=== PATIENT | male | born 1970 | race Caucasian/White ===

== ENCOUNTER 2018-07-14 12:52 | Inpatient (IN) | payer OTHER ==
[2018-07-14 13:36] VITALS: BMI 19.5
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
[2018-07-14] MEDS ORDERED: MAG HYDROX/AL HYDROX/SIMETH 30 ML UNIT-DOSE CUP PO PRN (15:37)
[2018-07-14] MEDS ORDERED: MAGNESIUM HYDROX 2400MG/30ML ORAL SUSPENSION 30 ML CUP PO PRN (15:37)
[2018-07-14] MEDS ORDERED: MENTHOL/PHENOL 1 EACH UD MM PRN (15:37)
[2018-07-14] MEDS ORDERED: METHOCARBAMOL 500 MG TABLET PO PRN (15:37)
[2018-07-14] MEDS ORDERED: BISMUTH SUBSALICYLATE 524 MG/30 ML UD PO PRN (15:37)
[2018-07-14] MEDS ORDERED: cloNIDine HCL 0.1 MG TABLET PO PRN (15:37)
[2018-07-14] MEDS ORDERED: ACETAMINOPHEN 325 MG TABLET (FP) PO PRN ×2 (15:37)
[2018-07-14] MEDS ORDERED: MELATONIN 5 MG TABLETS PO PRN (15:37)
[2018-07-14] MEDS ORDERED: diazePAM 5 MG TABLET PO PRN (15:37)
[2018-07-14] MEDS ORDERED: MAGNESIUM CITRATE 300 ML BOTTLE PO PRN (15:37)
[2018-07-14] MEDS ORDERED: IBUPROFEN 400 MG TABLET (FP) PO PRN (15:37)
[2018-07-14] MEDS ORDERED: BACITRACIN 15 GM TUBE TOPICAL OINTMENT TP ONE (17:30)
[2018-07-14] MEDS: NICOTINE POLACRILEX 4 MG GUM BUC PRN (18:29)
[2018-07-14] MEDS ORDERED: THIAMINE HCL 100 MG TABLET (FP) PO SCH (22:00)
[2018-07-14] MEDS: diazePAM 5 MG TABLET PO SCH (22:03)
[2018-07-14] MEDS ORDERED: METHADONE HCL 10 MG TABLET (FOR DETOX USE ONLY) PO ONE (23:00)
[2018-07-14 23:17] LABS: URINE APPEARANCE CLEAR; URINE BILIRUBIN NEGATIVE (NEGATIVE); URINE COLOR DK YELLOW; URINE GLUCOSE (UA) NEGATIVE (NEGATIVE); URINE KETONE NEGATIVE (NEGATIVE); URINE LEUK ESTERASE NEGATIVE (NEGATIVE); URINE NITRITE NEGATIVE (NEGATIVE); URINE PROTEIN NEGATIVE (NEGATIVE)
[2018-07-15] MEDS: diazePAM 5 MG TABLET PO SCH (07:03)
[2018-07-15] MEDS: NICOTINE POLACRILEX 4 MG GUM BUC PRN (07:50)
--- NOTE | 2018-07-15 08:39 | CONSULT ---
[facility] Psychiatric Consult - Data Date of interview: 07/15/18 Admission source: [facility] Identifying data: Mr Gonzalez is a 48 years old male, father of 2 children, unemployed receiving public assistance, domiciled seeking detox treatment for alcohol, opioid, benzodiazepin, cannabis and ecstasy Medical History: Significant for arthritis in both hands and knees, herniated disks (lumbar spine) and history of bilateral knee surgery. Smokes cigarettes 2 ppd Psychiatric History: Reports that his first psychiatric contact was at age 11 when he was diagnosed with ADHD and started on Ritalin. Reports that he took medication(Ritalin) till age 16. Reports that from age 16 to 26 he was off medication. At age 26 he was rediagnosed with ADHD and Bipolar Disorder and was started on Adderall, Risperdal. Reports multiple psychiatric hospitalizations at various local facilities including [facility], [facility], [facility](formerly [facility]and most recentlyin 2008 at [facility]. Reports receiving outpatient psychiatric treatment at [facility] in the [place] and he is currently prescribed Risperdal 2mg/day, Adderall 20 mg/bid, Xanax 2mg/day and Venlafaxine XR 225 mg/day. This is confirmed by verification of external medication history from [facility](filled scripts for 30 day supply of these medications on 07/09/18). Denies history of suicide attempts. At present, denies experiencing psychotic, manic or depressive symptoms. However, reports feeling anxious and sleeping poorly Physical/Sexual Abuse/Trauma History: Denies history of emotional, physical or sexual abuse as well as DV relationship. No service Additional Comment: Reports history of multiple previous misdemeanor arrests. Denies being on parole/probation. Reports having an open case on charges of DUI without a license Mental Status Exam - Mental Status Exam Alert and Oriented to: Time, Place, Person Cognitive Function: Fair Patient Appearance: Disheveled Mood: Anxious Affect: Appropriate Speech Pattern: Clear Voice Loudness: Normal Thought Process: Intact, Goal Oriented Hallucinations: Denies Suicidal Ideation: Denies Homicidal Ideation: Denies Insight/Judgement: Poor Sleep: Poorly Appetite: Fair Muscle strength/Tone: Normal Gait/Station: Normal Psychiatric Findings - Problem List ([place] 1, 2,3) (1) Bipolar disorder Current Visit: No Status: Chronic (2) Substance-induced anxiety disorder Current Visit: Yes Status: Acute (3) Substance-induced sleep disorder Current Visit: Yes Status: Acute (4) Alcohol dependence with uncomplicated withdrawal Current Visit: Yes Status: Acute (5) Opioid dependence with withdrawal Current Visit: Yes Status: Acute (6) Sedative, hypnotic or anxiolytic dependence with withdrawal, uncomplicated Current Visit: Yes Status: Acute (7) Cannabis dependence Current Visit: Yes Status: Acute (8) MDMA abuse Current Visit: Yes Status: Acute (9) Nicotine dependence Current Visit: Yes Status: Chronic (10) Arthritis Current Visit: Yes Status: Chronic - Initial Treatment Plan Initial Treatment Plan: 1) Continue Venlafaxine XR 225 mg po daily, Buspar 15 mg po BID, Risperdal 2 mg po daily. 2) Start Ritalin 5 mg po BID. 3) Continue inpatient detoxification
--- NOTE | 2018-07-15 09:38 | PN ---
S CIWA - CIWA Score Nausea/Vomitin Muscle Tremors: 2 Anxiety: 2 Agitation: 2 Paroxysmal Sweats: 1-Minimal Palms Moist Orientation: 0-Oriented Tacttile Disturbances: 1-Very Mild Itch/Numbness Auditory Disturbances: 1-Very Mild Visual Disturbances: 0-None Headache: 2-Mild CIWA-Ar Total Score: 13 BHS COWS - Scale Resting Pulse: 0= [place] 80 or Below Sweatin= Chills/Flushing Restless Observation: 1= Difficult to Sit Still Pupil Size: 1= Pupils >than Normal Bone or Joint Aches: 2= Severe Diffuse Aches Runny Nose/ Eye Tearin= Runny Nose/Eyes GI Upset > 30mins: 2= Nausea/Diarrhea Tremor Observation of Outstretched Hands: 2= Slight Tremor Visible Yawning Observation: 1= 1-2x During Session Anxiety or Irritability: 2=Irritable/Anxious Goose Flesh Skin: 0=Smooth Skin COWS Score: 14 S Progress Note (SOAP) Subjective: alert,irritable,anxious,pain in the body and back,tremor,interrupted sleep Objective: 07/15/18 09:36 Vital Signs Temperature 97.3 F L 07/14/18 21:28 Pulse Rate 131 H 07/14/18 21:28 Respiratory Rate 16 07/15/18 06:15 Blood Pressure 103/57 L 07/14/18 21:28 O2 Sat by Pulse Oximetry (%) ekg sinus bradycardia 54/min qt/qtc 418/396 no chest pain,no sob,no dizziness Laboratory Last Values Urine Color Dk yellow 07/14/18 18:15 Urine Appearance Clear 07/14/18 18:15 Urine pH 5.0 (5.0-8.0) 07/14/18 18:15 Ur Specific [place] 1.025 (1.010-1.035) 07/14/18 18:15 Urine Protein Negative (NEGATIVE) 07/14/18 18:15 Urine Glucose (UA) Negative (NEGATIVE) 07/14/18 18:15 Urine Ketones Negative (NEGATIVE) 07/14/18 18:15 Urine Blood Negative (NEGATIVE) 07/14/18 18:15 Urine Nitrite Negative (NEGATIVE) 07/14/18 18:15 Urine Bilirubin Negative (NEGATIVE) 07/14/18 18:15 Urine Urobilinogen 1.0 mg/dL (0.2-1.0) 07/14/18 18:15 Ur Leukocyte Esterase Negative (NEGATIVE) 07/14/18 18:15 labs pending Assessment: 07/15/18 09:37 withdrawal symptom Plan: continue detox
[2018-07-15] MEDS ORDERED: PRENATAL VITAMINS W/ FOLIC ACID TABLET (FP) PO SCH (10:00)
[2018-07-15] MEDS ORDERED: VENLAFAXINE HCL 75 MG E.R. CAPSULES (FP) PO SCH (10:00)
[2018-07-15] MEDS ORDERED: METHADONE HCL 10 MG TABLET (FOR DETOX USE ONLY) PO ONE (10:00)
[2018-07-15] MEDS ORDERED: NICOTINE 21 MG/24 HOURS TOPICAL PATCH TD SCH (10:00)
[2018-07-15] MEDS ORDERED: METHYLPHENIDATE HCL 5 MG TABLET PO SCH (10:00)
[2018-07-15 10:23] VITALS: BP 125/72; PULSE 71; TEMP 98.1
[2018-07-15 10:51] LABS: ALBUMIN 3.4 g/dl (3.4-5.0); BILIRUBIN,TOTAL 0.6 mg/dL (0.2-1); CALCIUM 8.3 mg/dL (8.5-10.1); CREATININE 0.8 mg/dL (0.55-1.3); POTASSIUM 3.7 mmol/L (3.5-5.1)
[2018-07-15 10:54] LABS: HEMATOCRIT 36.5 % (35.4-49); HEMOGLOBIN 12.2 GM/dL (11.7-16.9); MCH 30.2 pg (25.7-33.7); MCHC 33.4 g/dl (32.0-35.9); MEAN CELL VOLUME 90.7 fl (80-96); MEAN PLT VOLUME 7.7 fl (7.5-11.1); PLATELET COUNT 205 K/MM3 (134-434); RBC 4.03 M/mm3 (4.00-5.60); RDW 13.1 % (11.9-15.9); WHITE BLOOD COUNT 6.6 K/mm3 (4.0-10.0)
--- NOTE | 2018-07-15 13:11 | EKG ---
Test Reason : Blood Pressure : / mmHG Vent. Rate : 054 BPM Atrial Rate : 054 BPM P-R Int : 136 ms QRS Dur : 106 ms QT Int : 418 ms P-R-T Axes : 060 060 052 degrees QTc Int : 396 ms SINUS BRADYCARDIA NONSPECIFIC INTRAVENTRICULAR CONDUCTION DEFECT NO PREVIOUS ECGS AVAILABLE Confirmed by DEEPTI THOMAS MD ([id number]) on 07/15/2018 1:11:16 PM Referred By: Confirmed By:DEEPTI THOMAS MD
--- NOTE | 2018-07-15 13:26 | PN ---
[facility] Progress Note Note: patient did not want to complete treatment,all attempts to convince patient to stay with no avail, the high risk of relapsing explain to patient,understood,signed release ama, advise to call 911 if any problem
--- NOTE | 2018-07-15 13:29 | DS ---
[facility] Detox Discharge Summary Admission Date: 07/14/18 Discharge Date: 07/15/18 - History Present History: Alcohol Dependence, Cannabis Dependence, Opioid Dependence, Sedative Dependence Pertinent Past History: patient signed release ama - Physical Exam Results Vital Signs: Vital Signs Temperature 98.1 F 07/15/18 10:22 Pulse Rate 71 07/15/18 10:22 Respiratory Rate 18 07/15/18 10:22 Blood Pressure 125/72 07/15/18 10:22 O2 Sat by Pulse Oximetry (%) Pertinent Admission Physical Exam Findings: withdrawal sisns and symptom Vital Signs Temperature 98.1 F 07/15/18 10:22 Pulse Rate 71 07/15/18 10:22 Respiratory Rate 18 07/15/18 10:22 Blood Pressure 125/72 07/15/18 10:22 O2 Sat by Pulse Oximetry (%) Laboratory Last Values WBC 6.6 K/mm3 (4.0-10.0) 07/15/18 07:00 RBC 4.03 M/mm3 (4.00-5.60) 07/15/18 07:00 Hgb 12.2 GM/dL (11.7-16.9) 07/15/18 07:00 Hct 36.5 % (35.4-49) 07/15/18 07:00 MCV 90.7 fl (80-96) 07/15/18 07:00 MCH 30.2 pg (25.7-33.7) 07/15/18 07:00 MCHC 33.4 g/dl (32.0-35.9) 07/15/18 07:00 RDW 13.1 % (11.9-15.9) 07/15/18 07:00 Plt Count 205 K/MM3 (134-434) 07/15/18 07:00 MPV 7.7 fl (7.5-11.1) D 07/15/18 07:00 Sodium 141 mmol/L (136-145) 07/15/18 07:00 Potassium 3.7 mmol/L (3.5-5.1) 07/15/18 07:00 Chloride 106 mmol/L (98-107) 07/15/18 07:00 Carbon Dioxide 29 mmol/L (21-32) 07/15/18 07:00 Anion Gap 6 MMOL/L (8-16) L 07/15/18 07:00 BUN 24 mg/dL (7-18) H 07/15/18 07:00 Creatinine 0.8 mg/dL (0.55-1.3) 07/15/18 07:00 Est GFR (CKD-EPI)AfAm 121.57 07/15/18 07:00 Est GFR (CKD-EPI)NonAf 104.89 07/15/18 07:00 Random Glucose 93 mg/dL (74-106) 07/15/18 07:00 Calcium 8.3 mg/dL (8.5-10.1) L 07/15/18 07:00 Total Bilirubin 0.6 mg/dL (0.2-1) 07/15/18 07:00 AST 11 U/L (15-37) L 07/15/18 07:00 ALT 17 U/L (13-61) 07/15/18 07:00 Alkaline Phosphatase 71 U/L (45-117) 07/15/18 07:00 Total Protein 6.0 g/dl (6.4-8.2) L 07/15/18 07:00 Albumin 3.4 g/dl (3.4-5.0) 07/15/18 07:00 Urine Color Dk yellow 07/14/18 18:15 Urine Appearance Clear 07/14/18 18:15 Urine pH 5.0 (5.0-8.0) 07/14/18 18:15 Ur Specific [place] 1.025 (1.010-1.035) 07/14/18 18:15 Urine Protein Negative (NEGATIVE) 07/14/18 18:15 Urine Glucose (UA) Negative (NEGATIVE) 07/14/18 18:15 Urine Ketones Negative (NEGATIVE) 07/14/18 18:15 Urine Blood Negative (NEGATIVE) 07/14/18 18:15 Urine Nitrite Negative (NEGATIVE) 07/14/18 18:15 Urine Bilirubin Negative (NEGATIVE) 07/14/18 18:15 Urine Urobilinogen 1.0 mg/dL (0.2-1.0) 07/14/18 18:15 Ur Leukocyte Esterase Negative (NEGATIVE) 07/14/18 18:15 RPR Titer Nonreactive (NONREACTIVE) 07/15/18 07:00 - Medication Discharge Medications: Ambulatory Orders Risperidone [Risperdal] 2 mg PO HS #30 tablet 09/13/15 Buspirone HCl [Buspar -] 15 mg PO BID 07/14/18 Dextroamphetamine/Amphetamine [Adderall Xr 20 mg Capsule] 20 mg PO BID 07/14/18 - AMA Did Patient Leave Against Medical Advice: Yes
[2018-07-15] MEDS ORDERED: risperiDONE 2 MG TABLET PO SCH (22:00)
[2018-07-16] MEDS ORDERED: diazePAM 5 MG TABLET PO SCH (10:00)
[2018-07-16] MEDS ORDERED: METHADONE HCL 10 MG TABLET (FOR DETOX USE ONLY) PO ONE (10:00)
[2018-07-17] MEDS ORDERED: diazePAM 5 MG TABLET PO SCH (06:00)
[2018-07-17] MEDS ORDERED: METHADONE HCL 10 MG TABLET (FOR DETOX USE ONLY) PO ONE (10:00)
[2018-07-18] MEDS ORDERED: METHADONE HCL 5 MG TABLET (FOR DETOX USE ONLY) PO ONE (06:00)
== END 2018-07-15 13:47 | disposition left against medical advice (07) | DRG 770 ==
LOC: YASAS 12:52 → Y6N 16:54
PROVIDERS: ADMIT Surgery; ATTEND Surgery
PROC: HZ2ZZZZ Detoxification Services for Substance Abuse Treatment (ICD-10-PCS; principal; 2018-07-14)
DX: F11.23 Opioid dependence with withdrawal (principal); F10.230 Alcohol dependence with withdrawal, uncomplicated; F13.230 Sedative, hypnotic or anxiolytic dependence with withdrawal, uncomplicated; F12.20 Cannabis dependence, uncomplicated; F16.10 Hallucinogen abuse, uncomplicated; F17.210 Nicotine dependence, cigarettes, uncomplicated; F31.9 Bipolar disorder, unspecified; F19.280 Other psychoactive substance dependence with psychoactive substance-induced anxiety disorder; F19.282 Other psychoactive substance dependence with psychoactive substance-induced sleep disorder; R00.1 Bradycardia, unspecified; M19.90 Unspecified osteoarthritis, unspecified site
CPT/HCPCS: 36415; 80053; 81003; 85027; 86593; 93005; 93010; J0735

== ENCOUNTER 2021-12-17 12:48 | Inpatient (IN) | payer OTHER ==
[2021-12-17 13:31] VITALS: BMI 36.2
[2021-12-17] MEDS ORDERED: IBUPROFEN 600 MG TABLET (FP) PO PRN (15:17)
[2021-12-17] MEDS ORDERED: methaDONE HCL 10 MG TABLET (FOR DETOX USE ONLY) PO ONE ×2 (15:17→16:30)
[2021-12-17] MEDS ORDERED: ACETAMINOPHEN 325 MG TABLET (FP) PO PRN ×2 (15:17)
[2021-12-17] MEDS ORDERED: ONDANSETRON *ODT* 4 MG TABLET SL PRN (15:17)
[2021-12-17] MEDS ORDERED: NALOXONE HCL (KLOXXADO) 8 MG SPRAY NS PRN (15:17)
[2021-12-17] MEDS ORDERED: LOPERAMIDE HCL 2 MG CAPSULE PO PRN (15:17)
[2021-12-17] MEDS ORDERED: METHOCARBAMOL 500 MG TABLET PO PRN (15:17)
[2021-12-17] MEDS ORDERED: MAGNESIUM CITRATE 300 ML BOTTLE PO PRN (15:17)
[2021-12-17] MEDS ORDERED: MAGNESIUM HYDROX 2400MG/30ML ORAL SUSPENSION 30 ML CUP PO PRN (15:17)
[2021-12-17] MEDS ORDERED: DICYCLOMINE HCL 10 MG CAPSULE PO PRN (15:17)
[2021-12-17] MEDS ORDERED: cloNIDine HCL 0.1 MG TABLET PO PRN (15:17)
[2021-12-17] MEDS ORDERED: MAG HYDROX/AL HYDROX/SIMETH 30 ML UNIT-DOSE CUP PO PRN (15:17)
[2021-12-17] MEDS ORDERED: BISMUTH SUBSALICYLATE 524 MG/30 ML PO PRN (15:17)
[2021-12-17] MEDS ORDERED: NICOTINE 10 MG CARTRIDGE (INHALER) IH PRN (15:17)
[2021-12-17] MEDS ORDERED: hydrOXYzine PAMOATE 25 MG CAPSULE (FP) PO PRN (15:17)
[2021-12-17] MEDS ORDERED: IBUPROFEN 400 MG TABLET (FP) PO PRN (15:17)
[2021-12-17] MEDS ORDERED: BENZOCAINE/MENTHOL (CHLORASEPTIC ) LOZENGE MM PRN (15:17)
[2021-12-17] MEDS ORDERED: NICOTINE 21 MG/24 HOURS TOPICAL PATCH TD SCH (15:30)
[2021-12-17] MEDS ORDERED: PRENATAL VITAMINS W/ FOLIC ACID TABLET (FP) PO SCH (15:30)
[2021-12-17] MEDS: diazePAM 5 MG TABLET PO SCH ×2 (21:01→23:24)
[2021-12-17] MEDS ORDERED: MELATONIN 5 MG TABLETS PO SCH (22:00)
[2021-12-17] MEDS ORDERED: THIAMINE HCL 100 MG TABLET (FP) PO SCH (22:00)
[2021-12-18 05:57] VITALS: BP 156/60; PULSE 59; RESP 18; TEMP 97.7
[2021-12-18] MEDS ORDERED: diazePAM 5 MG TABLET PO SCH (06:00)
[2021-12-18] MEDS: diazePAM 5 MG TABLET PO SCH (06:03)
[2021-12-18 11:27] LABS: CALCIUM 8.7 mg/dL (8.5-10.1)
[2021-12-18 11:28] LABS: ALBUMIN 3.5 g/dl (3.4-5.0); BLOOD UREA NITROGEN 11.3 mg/dL (7-18)
[2021-12-18 11:29] LABS: HEMATOCRIT 40.6 % (35.4-49); HEMOGLOBIN 13.5 GM/dL (11.7-16.9); MCH 30.6 pg (25.7-33.7); MCHC 33.3 g/dl (32.0-35.9); MEAN CELL VOLUME 91.9 fl (80-96); PLATELET COUNT 229 10^3/uL (134-434); RBC 4.42 M/mm3 (4.00-5.60); RDW 13.2 % (11.9-15.9); WHITE BLOOD COUNT 6.4 K/mm3 (4.0-10.0)
[2021-12-18 11:30] LABS: CREATININE 0.8 mg/dL (0.55-1.3)
[2021-12-18 11:31] LABS: BILIRUBIN,TOTAL 0.3 mg/dL (0.2-1); TOT PROT 6.6 g/dl (6.4-8.2)
[2021-12-19] MEDS ORDERED: diazePAM 5 MG TABLET PO ONE (06:00)
[2021-12-19] MEDS ORDERED: methaDONE HCL 10 MG TABLET (FOR DETOX USE ONLY) PO ONE (10:00)
[2021-12-21] MEDS ORDERED: methaDONE HCL 10 MG TABLET (FOR DETOX USE ONLY) PO ONE (10:00)
== END 2021-12-18 09:28 | disposition left against medical advice (07) | DRG 770 ==
LOC: YASAS 12:48 → Y3N 15:46
PROVIDERS: ADMIT Allergy & Immunology; ATTEND Surgery
PROC: HZ2ZZZZ Detoxification Services for Substance Abuse Treatment (ICD-10-PCS; principal; 2021-12-17)
DX: F11.23 Opioid dependence with withdrawal (principal); F10.20 Alcohol dependence, uncomplicated; F14.20 Cocaine dependence, uncomplicated; F17.210 Nicotine dependence, cigarettes, uncomplicated; F19.24 Other psychoactive substance dependence with psychoactive substance-induced mood disorder; F90.9 Attention-deficit hyperactivity disorder, unspecified type; F91.8 Other conduct disorders; Z91.199 Patient's noncompliance with other medical treatment and regimen due to unspecified reason
CPT/HCPCS: 36415; 80053; 85027; 86780; C9803-CS; U0003; U0005